=== PATIENT | female | born 1945 | race Caucasian/White ===

== ENCOUNTER 2021-07-12 15:36 | Inpatient (IN) ==
[2021-07-12 16:34] LABS: Basophils % 0.2 % (0.0-0.8); Eosinophils # 0.1 10*3/uL (0.0-0.87); Eosinophils % 0.8 % (0.00-10.9); Hematocrit 26.7 VOL% (35.7-47.0); Hemoglobin 8.5 GM/DL (12.0-16.0); Immature Granulocytes % 0.6 %; Immature Granulocytes Absolute 0.07 #; Lymphocytes # 0.6 10*3/uL (1.4-4.0); Lymphocytes % 4.9 % (21.3-54.2); Mean Corpuscular HGB Conc 31.8 GM/DL (32-36); Mean Corpuscular Volume 89.6 FL (87-102); Mean Platelet Volume 10.1 FL (9.6-12.0); Monocytes % 10.9 % (1.7-12.7); Neutrophils % 82.6 % (38.7-73.9); Platelet Count 279 T/CUMM (130-400); Red Blood Count 2.98 MC/CUMM (3.8-5.5); Red Cell Distribution Width 13.3 % (9.3-17.3); White Blood Count 12.6 T/CUMM (4-12)
[2021-07-12 16:51] LABS: Albumin 2.6 G/DL (3.4-5.0); Calcium 8.1 MG/DL (8.5-10.1); Osmolality,Calculated 262.9 MOS/KG (273-304); Potassium 4.6 MMOL/L (3.5-5.1)
[2021-07-12] MEDS ORDERED: ONDANSETRON 4 MG/2 ML VIAL ONE (17:04)
[2021-07-12] MEDS ORDERED: ONDANSETRON 4 MG/2 ML VIAL IV STA (17:07)
[2021-07-12] MEDS ORDERED: ASPIRIN 325 MG TABLET PO STA (17:33)
[2021-07-12 17:36] LABS: Band Neutrophils 1 % (0-10); Eosinophils 1 % (0-10); Lymphocytes 9 % (20-55); Segmented Neutrophils 82 % (50-85); Total Cells Counted 100
[2021-07-12 17:37] LABS: Anisocytosis 1+
[2021-07-12 17:38] LABS: Platelet Estimate Adequate
[2021-07-12] MEDS ORDERED: MORPHINE 2 MG/1 ML SYRINGE IV STA (17:39)
[2021-07-12] MEDS ORDERED: MORPHINE 2 MG/1 ML SYRINGE ONE (17:40)
[2021-07-12 19:07] LABS: Bacteria,Urine Occasional /HPF (Few); Bilirubin,Urine Negative (Negative); Blood, Urine Negative (Negative); Glucose,Urine (UA) Negative (Negative); Ketones,Urine Negative (Negative); Mucus,Urine Occasional /LPF (Occasional); Nitrite,Urine Positive (Negative); Protein,Urine Negative; RBC,Urine 2 /HPF (0-4); Squamous Epithelial Cell,Urine Occasional /HPF (0-10); Transitional Epi Cells,Urine Occasional /HPF (<1); Urine Appearance CLEAR (Clear); Urine Color Amber (Yellow); Urine Specific Gravity 1.013 (1.001-1.035)
[2021-07-12] MEDS ORDERED: SODIUM CHLORIDE 0.9% 1,000 ML IV PRN (19:19)
[2021-07-12] MEDS ORDERED: DEXTROSE 50% 25 GM/50 ML VIAL IV PRN (20:11)
[2021-07-12] MEDS ORDERED: hydrALAZINE 20 MG/1 ML VIAL IV PRN (20:11)
[2021-07-12] MEDS ORDERED: ZALEPLON 5 MG CAPSULE PO PRN (20:11)
[2021-07-12] MEDS ORDERED: ACETAMINOPHEN 325 MG TABLET PO PRN (20:11)
[2021-07-12] MEDS ORDERED: GLUCAGON 1 MG VIAL IM PRN (20:11)
[2021-07-12] MEDS: INSULIN REGULAR 100 UNIT/ML SUBCUT SCH (21:07)
[2021-07-12] MEDS: LEVOFLOXACIN INJ 500 MG/100 ML PREMIX IV SCH (21:25)
[2021-07-12] MEDS: SODIUM CHLORIDE 0.9% 1,000 ML IV SCH (22:30)
[2021-07-13] MEDS: NITROGLYCERIN 2% OINT 1 INCH/GM PACK TOP SCH ×4 (00:08→17:07)
[2021-07-13] MEDS: ONDANSETRON 4 MG/2 ML VIAL IV PRN (00:14)
[2021-07-13 00:43] LABS: Basophils # 0.1 10*3/uL (0.0-0.2); Basophils % 0.5 % (0.0-0.8); Eosinophils # 0.4 10*3/uL (0.0-0.87); Eosinophils % 3.9 % (0.00-10.9); Hematocrit 30.2 VOL% (35.7-47.0); Hemoglobin 9.6 GM/DL (12.0-16.0); Immature Granulocytes % 0.5 %; Immature Granulocytes Absolute 0.05 #; Lymphocytes % 9.3 % (21.3-54.2); Mean Corpuscular HGB Conc 31.8 GM/DL (32-36); Mean Corpuscular Volume 89.3 FL (87-102); Mean Platelet Volume 10.3 FL (9.6-12.0); Monocytes % 12.5 % (1.7-12.7); Neutrophils % 73.3 % (38.7-73.9); Platelet Count 320 T/CUMM (130-400); Red Blood Count 3.38 MC/CUMM (3.8-5.5); Red Cell Distribution Width 13.7 % (9.3-17.3); White Blood Count 10.4 T/CUMM (4-12)
[2021-07-13 00:52] LABS: Albumin 2.5 G/DL (3.4-5.0); Bilirubin,Total 1.5 MG/DL (0.20-1.00); Calcium 8.6 MG/DL (8.5-10.1); Osmolality,Calculated 261.9 MOS/KG (273-304); Potassium 4.6 MMOL/L (3.5-5.1)
[2021-07-13 00:56] LABS: Risk Ratio 2.41; VLDL Cholesterol 26.2 MG/DL
[2021-07-13] MEDS ORDERED: MORPHINE 2 MG/1 ML SYRINGE IV PRN (02:02)
[2021-07-13 03:05] LABS: Hepatitis B Core IgM Quant 0.07 Index; Hepatitis B Surface Ag Quant < 0.10 Index; Hepatitis B Surface Ag Result Non-Reactive (NonReactive); Hepatitis C Virus Ab Quant 0.02 Index; Hepatitis C Virus Ab Result Non-Reactive (NonReactive)
[2021-07-13] MEDS: SODIUM CHLORIDE 0.9% 1,000 ML IV SCH ×2 (05:52→17:07)
[2021-07-13] MEDS: INSULIN REGULAR 100 UNIT/ML SUBCUT SCH ×4 (09:47→21:30)
[2021-07-13] MEDS: ASPIRIN 325 MG TABLET PO SCH (09:48)
[2021-07-13] MEDS: PANTOPRAZOLE 40 MG TABLET PO SCH (09:48)
[2021-07-13] MEDS ORDERED: ALUM/MAG/SIMETH/LIDO VISC 1:1 30 ML BOTTLE PO ONE (10:52)
[2021-07-13] MEDS: LEVOFLOXACIN INJ 500 MG/100 ML PREMIX IV SCH (21:30)
[2021-07-14] MEDS: NITROGLYCERIN 2% OINT 1 INCH/GM PACK TOP SCH ×4 (01:05→17:27)
[2021-07-14] MEDS: SODIUM CHLORIDE 0.9% 1,000 ML IV SCH ×3 (05:37→22:05)
[2021-07-14 06:11] LABS: Basophils % 0.4 % (0.0-0.8); Eosinophils # 0.7 10*3/uL (0.0-0.87); Eosinophils % 6.7 % (0.00-10.9); Hematocrit 33.4 VOL% (35.7-47.0); Hemoglobin 10.6 GM/DL (12.0-16.0); Immature Granulocytes % 0.5 %; Immature Granulocytes Absolute 0.05 #; Lymphocytes # 1.2 10*3/uL (1.4-4.0); Lymphocytes % 12.4 % (21.3-54.2); Mean Corpuscular HGB Conc 31.7 GM/DL (32-36); Mean Corpuscular Volume 90.5 FL (87-102); Mean Platelet Volume 10.2 FL (9.6-12.0); Monocytes % 12.3 % (1.7-12.7); Neutrophils % 67.7 % (38.7-73.9); Platelet Count 415 T/CUMM (130-400); Red Blood Count 3.69 MC/CUMM (3.8-5.5); Red Cell Distribution Width 14.6 % (9.3-17.3); White Blood Count 9.7 T/CUMM (4-12)
[2021-07-14 06:28] LABS: Osmolality,Calculated 271.1 MOS/KG (273-304)
[2021-07-14 08:11] LABS: Albumin 2.5 G/DL (3.4-5.0); Bilirubin,Direct 0.26 MG/DL (0.0-0.20); Bilirubin,Indirect 0.5 MG/DL (0.0-1.0); Bilirubin,Total 0.8 MG/DL (0.20-1.00); Total Protein 6.9 G/DL (6.4-8.2)
[2021-07-14] MEDS: INSULIN REGULAR 100 UNIT/ML SUBCUT SCH ×4 (09:10→22:04)
[2021-07-14] MEDS: ASPIRIN 325 MG TABLET PO SCH (10:03)
[2021-07-14] MEDS: PANTOPRAZOLE 40 MG TABLET PO SCH (10:03)
[2021-07-14] MEDS: LEVOFLOXACIN INJ 500 MG/100 ML PREMIX IV SCH (21:49)
[2021-07-14] MEDS: ONDANSETRON 4 MG/2 ML VIAL IV PRN (21:49)
[2021-07-15] MEDS: NITROGLYCERIN 2% OINT 1 INCH/GM PACK TOP SCH ×5 (01:11→23:35)
[2021-07-15 06:02] LABS: Basophils # 0.1 10*3/uL (0.0-0.2); Basophils % 0.8 % (0.0-0.8); Eosinophils # 0.6 10*3/uL (0.0-0.87); Eosinophils % 7.5 % (0.00-10.9); Hemoglobin 10.9 GM/DL (12.0-16.0); Immature Granulocytes % 0.4 %; Immature Granulocytes Absolute 0.03 #; Lymphocytes # 1.2 10*3/uL (1.4-4.0); Lymphocytes % 14.9 % (21.3-54.2); Mean Corpuscular HGB Conc 31.1 GM/DL (32-36); Mean Corpuscular Volume 92.6 FL (87-102); Mean Platelet Volume 9.5 FL (9.6-12.0); Monocytes % 11.8 % (1.7-12.7); Neutrophils % 64.6 % (38.7-73.9); Platelet Count 420 T/CUMM (130-400); Red Blood Count 3.78 MC/CUMM (3.8-5.5); Red Cell Distribution Width 14.3 % (9.3-17.3); White Blood Count 7.7 T/CUMM (4-12)
[2021-07-15 06:40] LABS: Albumin 2.4 G/DL (3.4-5.0); Bilirubin,Total 0.9 MG/DL (0.20-1.00); Calcium 8.8 MG/DL (8.5-10.1); Potassium 4.6 MMOL/L (3.5-5.1); Total Protein 6.7 G/DL (6.4-8.2)
[2021-07-15] MEDS: INSULIN REGULAR 100 UNIT/ML SUBCUT SCH ×4 (08:36→20:10)
[2021-07-15] MEDS: ASPIRIN 325 MG TABLET PO SCH (08:37)
[2021-07-15] MEDS: PANTOPRAZOLE 40 MG TABLET PO SCH (08:37)
[2021-07-15] MEDS: SODIUM CHLORIDE 0.9% 1,000 ML IV SCH ×2 (08:56→21:30)
[2021-07-15] MEDS ORDERED: LOSARTAN 25 MG TABLET PO SCH (09:00)
[2021-07-15] MEDS: DOCUSATE SODIUM 100 MG CAPSULE PO SCH (20:05)
[2021-07-15] MEDS: LEVOFLOXACIN INJ 500 MG/100 ML PREMIX IV SCH (20:06)
[2021-07-15] MEDS ORDERED: ROSUVASTATIN 10 MG TABLET PO SCH (21:00)
[2021-07-16 05:37] LABS: Basophils # 0.1 10*3/uL (0.0-0.2); Basophils % 0.8 % (0.0-0.8); Eosinophils # 0.5 10*3/uL (0.0-0.87); Eosinophils % 6.9 % (0.00-10.9); Hemoglobin 11.4 GM/DL (12.0-16.0); Immature Granulocytes % 0.4 %; Immature Granulocytes Absolute 0.03 #; Lymphocytes # 1.2 10*3/uL (1.4-4.0); Lymphocytes % 15.3 % (21.3-54.2); Mean Corpuscular HGB Conc 31.7 GM/DL (32-36); Mean Corpuscular Volume 91.6 FL (87-102); Monocytes % 11.9 % (1.7-12.7); Neutrophils % 64.7 % (38.7-73.9); Platelet Count 450 T/CUMM (130-400); Red Blood Count 3.93 MC/CUMM (3.8-5.5); Red Cell Distribution Width 14.1 % (9.3-17.3); White Blood Count 7.8 T/CUMM (4-12)
[2021-07-16] MEDS: NITROGLYCERIN 2% OINT 1 INCH/GM PACK TOP SCH ×2 (05:44→13:30)
[2021-07-16 05:56] LABS: Calcium 8.8 MG/DL (8.5-10.1); Osmolality,Calculated 283.3 MOS/KG (273-304); Potassium 4.4 MMOL/L (3.5-5.1)
[2021-07-16] MEDS: SODIUM CHLORIDE 0.9% 1,000 ML IV SCH (07:32)
[2021-07-16] MEDS: INSULIN REGULAR 100 UNIT/ML SUBCUT SCH ×3 (07:56→16:00)
[2021-07-16] MEDS ORDERED: LOSARTAN 50 MG TABLET PO SCH (09:00)
[2021-07-16] MEDS ORDERED: PARoxetine 20 MG TABLET PO SCH (09:00)
[2021-07-16] MEDS ORDERED: POLYETHYLENE GLYCOL POWDER 17 GM PACK PO SCH (09:00)
[2021-07-16] MEDS: PANTOPRAZOLE 40 MG TABLET PO SCH (09:29)
[2021-07-16] MEDS: ASPIRIN 325 MG TABLET PO SCH (09:30)
[2021-07-16] MEDS: DOCUSATE SODIUM 100 MG CAPSULE PO SCH (09:30)
[2021-07-16 16:36] VITALS: BP 143/63
== END 2021-07-16 17:26 | disposition home health service (06) | DRG 392 ==
LOC: EDBD → EDUNIT# → N.ED 15:36 → N.EDINP 20:11 → SUATTDRO 20:11 → N.TELEN 21:58
PROVIDERS: ADMIT Internal Medicine; ATTEND Internal Medicine